=== PATIENT | female | born 1960 | race Caucasian/White ===

== ENCOUNTER 2019-12-11 12:28 | Emergency (ER) | payer OTHER ==
[~2019-12-11] VITALS: Ht 170.2 cm; Wt 88.5 kg
[2019-12-11] MEDS ORDERED: KETOROLAC TROMETH 60MG/2ML VIAL ONE (16:12)
[2019-12-11] MEDS ORDERED: KETOROLAC TROMETH 60MG/2ML VIAL IM ONE (16:15)
[2019-12-11 16:19] VITALS: BP 129/62
== END 2019-12-11 16:20 | disposition home or self-care (01) ==
LOC: ER 12:28
DX: M17.11 Unilateral primary osteoarthritis, right knee (principal); M25.461 Effusion, right knee
CPT/HCPCS: 73562; 96372; 99283; J1885

== ENCOUNTER 2020-08-08 23:58 | Emergency (ER) | payer OTHER ==
[~2020-08-08] VITALS: Ht 170.2 cm; Wt 90.7 kg
[2020-08-08 23:59] VITALS: BP 164/65
== END 2020-08-09 01:54 | disposition left against medical advice (07) ==
LOC: ER 23:58
DX: R21 Rash and other nonspecific skin eruption (principal); M79.602 Pain in left arm; M79.601 Pain in right arm; Z53.21 Procedure and treatment not carried out due to patient leaving prior to being seen by health care provider

== ENCOUNTER 2020-08-11 16:12 | Emergency (ER) | payer OTHER ==
[~2020-08-11] VITALS: Ht 170.2 cm; Wt 90.7 kg
[2020-08-11 16:15] VITALS: BP 144/87
[2020-08-11] MEDS ORDERED: methylPREDNISolone SOD SUCC 125 MG/2 ML VL IM ONE (17:00)
== END 2020-08-11 17:42 | disposition home or self-care (01) ==
LOC: ER 16:13
DX: L30.9 Dermatitis, unspecified (principal); F17.210 Nicotine dependence, cigarettes, uncomplicated
CPT/HCPCS: 96372; 99283; J2930

== ENCOUNTER 2020-09-07 22:40 | Emergency (ER) | payer OTHER ==
[~2020-09-07] VITALS: Ht 170.2 cm; Wt 90.7 kg
[2020-09-08 02:12] VITALS: BP 155/89
== END 2020-09-08 02:42 | disposition left against medical advice (07) ==
LOC: ER 22:40
DX: R21 Rash and other nonspecific skin eruption (principal); L29.9 Pruritus, unspecified; F17.210 Nicotine dependence, cigarettes, uncomplicated

== ENCOUNTER 2020-10-31 17:13 | Emergency (ER) | payer MEDICAID, OTHER ==
[~2020-10-31] VITALS: Ht 170.2 cm; Wt 90.7 kg
[2020-10-31 20:09] VITALS: BP 103/57
[2020-11-01] MEDS ORDERED: CLINDAMYCIN 900MG IV 50 ML IV ONE (00:30)
[2020-11-01] MEDS ORDERED: SODIUM CHLORIDE 0.9% 1,000 ML IV ONE (01:45)
== END 2020-11-01 05:25 | disposition home or self-care (01) ==
LOC: ER 17:13
DX: L03.115 Cellulitis of right lower limb (principal); L03.116 Cellulitis of left lower limb; I87.2 Venous insufficiency (chronic) (peripheral); F17.210 Nicotine dependence, cigarettes, uncomplicated
CPT/HCPCS: 96365; 99284; J3490; J7030

== ENCOUNTER 2022-08-17 03:32 | Emergency (ER) | payer MEDICAID ==
[~2022-08-17] VITALS: Ht 170.2 cm; Wt 84.5 kg
[2022-08-17] MEDS ORDERED: methylPREDNISolone SOD SUCC 125 MG/2 ML VL IM ONE (04:15)
[2022-08-17] MEDS ORDERED: diphenhdrAMINE HCL 50 MG/1 ML VL IM ONE (04:15)
[2022-08-17] MEDS ORDERED: CEPH-510 PO (04:56)
[2022-08-17] MEDS ORDERED: PRED20TA2 PO (04:56)
[2022-08-17] MEDS ORDERED: DIPH25CA66 PO (04:56)
[2022-08-17 05:56] VITALS: BP 132/68
== END 2022-08-17 05:56 | disposition home or self-care (01) ==
LOC: ER 03:32
DX: T78.40XA Allergy, unspecified, initial encounter (principal); F17.210 Nicotine dependence, cigarettes, uncomplicated; Z79.899 Other long term (current) drug therapy; Y92.89 Other specified places as the place of occurrence of the external cause
CPT/HCPCS: 96372; 99284; J1200; J2930

== ENCOUNTER 2024-01-16 21:47 | Emergency (ER) | payer MEDICAID ==
[~2024-01-16] VITALS: Ht 170.2 cm; Wt 84.0 kg
[~2024-01-16 21:47] MED LIST: CEPH-510 PO; DIPH25CA66 PO; PRED20TA2 PO
[2024-01-16] MEDS: cloNIDine HCL 0.1 MG TAB PO ONE (22:31)
[2024-01-16 23:31] VITALS: BP 135/81; PULSE 82; RESP 16; TEMP 98.7; O2SAT 93
[2024-01-16] MEDS ORDERED: ERY05OO OP (23:58)
[2024-01-17] MEDS: KETOROLAC TROMETH 60MG/2ML VIAL IM ONE (00:06)
== END 2024-01-17 00:35 | disposition home or self-care (01) ==
LOC: ER 21:47
DX: H16.133 Photokeratitis, bilateral (principal); F17.210 Nicotine dependence, cigarettes, uncomplicated; Z79.899 Other long term (current) drug therapy; W89.8XXA Exposure to other man-made visible and ultraviolet light, initial encounter; Y93.89 Activity, other specified; Y92.89 Other specified places as the place of occurrence of the external cause; Y99.8 Other external cause status
CPT/HCPCS: 96372; 99283; J1885

== ENCOUNTER 2024-04-30 16:09 | Emergency (ER) | payer MEDICAID ==
[~2024-04-30] VITALS: Ht 170.2 cm; Wt 88.8 kg
[~2024-04-30 16:09] MED LIST changes: +ERY05OO OP
[2024-04-30 16:19] VITALS: BP 152/76; PULSE 102; RESP 16; O2SAT 97
--- NOTE | 2024-04-30 17:41 | DVH ---
CHEST RADIOGRAPH Indication: sob Technique: Single frontal view of the chest was obtained Comparison: None FINDINGS: Lines and Tubes: None Lungs: Possible soft tissue mass in the aortic pulmonary window. Recommend CT of the chest with IV co ntrast. Pleura: No effusion. No pneumothorax. Cardiomediastinal contours: Unremarkable Bones: No acute osseous abnormality. IMPRESSION: 1. Questionable mass in the aortic or pulmonary window recommend CT scan of the chest with IV contras t.. HS:Y
[2024-04-30 17:47] LABS: Albumin 4.3 g/dL (3.2-4.8); Anion Gap 6 (5-15); Aspartate Aminotransferase 28 U/L (13-40); Blood Urea Nitrogen 16 mg/dL (9-23); Calcium 9.8 mg/dL (8.7-10.4); Carbon Dioxide 27 mmol/L (20-31); Glucose 100 mg/dL (74-106); Potassium 3.9 mmol/L (3.5-5.1); Sodium 141 mmol/L (136-145)
[2024-04-30 17:48] LABS: Bilirubin, Total 0.9 mg/dL (0.2-1.0); Total Protein 7.5 g/dL (5.7-8.2)
[2024-04-30 18:02] LABS: Alanine Aminotransferase 49 U/L (7-40); Alkaline Phosphatase 135 U/L (46-116); Chloride 108 mmol/L (98-107)
[2024-04-30 18:06] LABS: Basophils # (auto) 0.1 10 ^3/uL (0-0.2); Basophils % (auto) 1.3 % (0.0-2.0); Eosinophils # (auto) 0.1 10 ^3/uL (0-0.8); Eosinophils % (auto) 1.4 % (0.0-7.0); Hematocrit 48.8 % (36.0-46.0); Hemoglobin 16.4 g/dL (12.2-16.2); Lymphocytes # (auto) 1.6 10 ^3/uL (0.4-5.4); Lymphocytes % (auto) 19.6 % (10.0-50.0); Mean Corpuscular Hemoglobin 31.4 pg (28.0-32.0); Mean Corpuscular Hgb Conc. 33.5 g/dL (32.0-36.0); Mean Corpuscular Volume 93.5 fL (80.0-100.0); Monocytes # (auto) 0.5 10 ^3/uL (0-1.3); Monocytes % (auto) 6.6 % (0.0-12.0); Neutrophils # (auto) 5.8 10 ^3/uL (1.6-8.6); Neutrophils % (auto) 71.1 % (37.0-80.0); Nucleated Red Blood Cells % 0.3 %; Platelet Count (auto) 227 10^3/uL (140-450); Red Blood Cells 5.22 10^6/uL (4.0-5.20); Red Cell Distribution Width 13.5 % (11.8-14.3); White Blood Cell 8.2 10^3/uL (4.4-10.8)
--- NOTE | 2024-04-30 19:37 | ED.PDOC ---
History of Present Illness HPI Comments 64 y/o F presents with c/o left-lower leg swelling and draining wound and shortness of breath, intermittently, for 1x week, today. Patient endorses on unprovoked onset of symptoms. She comments on having prior Hx of leg swelling in the past, intermittently, for months in addition to wound being on the left l ateral side of her lower leg. Patient reports awaiting current vascula specialist consultation following seeing her PCP in regards to symptoms, recently. She denies having any fever, chills, chest pain, palpitations, cough, wheezing, or other associated symptoms or modifiers at this time. Chief Complaint: Wound Check Time Seen by MD: 16:15 Primary Care Provider: ADRIANOIES Reviewed Notes: Nurses Notes, Medications, Allergies Allergies: Coded Allergies: NO KNOWN ALLERGIES (Unverified , 12/11/19) Home Meds Active Scripts Erythromycin (Erythromycin) 5 Mg/Gm Oin, 1 MG OP QID for 7 Days, #3.5 GRAMS Apply 1 cm ribbon to each inside lower lid up to 4 times daily x7 days Prov:SUDEEP NATHAN 01/16/24 Diphenhydramine Hcl (Benadryl Allergy) 25 Mg Cap, 2 CAP PO Q6HPRN, #30 CAP 0 Refills Prov:ALEKSEY FARIAS 08/17/22 Prednisone (Prednisone) 20 Mg Tab, 20 MG PO BID for 5 Days, #10 TAB 0 Refills Prov:ALEKSEY FARIAS 08/17/22 Cephalexin ( Keflex 500) 500 Mg Cap, 1 CAP PO BID for 7 Days, #14 CAP 0 Refills Prov:ALEKSEY FARIAS 08/17/22 Information Source: Patient Mode of Arrival: Ambulatory Severity: Moderate Timing: Weeks Duration: Intermittent Prehospital treatment: None Past Medical History PAST MEDICAL HISTORY: Denies Surgical History: Denies all surgeries APPLICATION SECURITY ARCHITECT History: Denies all APPLICATION SECURITY ARCHITECT Hx Family History Family History: Unknown Social History Smoker: Cigarettes, Less Than 1 Pack/Day Alcohol: Occasionally Drugs: Denies Drug Use Lives In: Home Respiratory: reports: shortness of breath Musculoskeletal: reports: others (left lower extremity swelling ) Integumetry: reports: wounds (left lateral side to left lower leg) All Other Systems: Reviewed and Negative (negative unless otherwise stated above or in HPI) Physical Exam General Appearance: No Apparent Distress, Obese HEENT: Normal ENT Inspection, Pharynx Normal, TMs Normal Neck: Full Range of Motion, Non-Tender, Normal, Normal Inspection Respiratory: Chest Non-Tender, Lungs Clear, No Accessory Muscle Use, No Respiratory Distress, Normal Breath Sounds Cardiovascular: No Edema, No JVD, No Murmur, No Gallop, Normal Peripheral Pulses, Regular Rate/Rhythm Breast Exam: Deferred Gastrointestinal: No Organomegaly, Non Tender, No Pulsatile Mass, Normal Bowel Sounds, Soft Genitalia: Deferred Pelvic: Deferred Rectal: Deferred Extremities: Leg edema (pitting bilateral LLE edema), No calf tenderness, Normal capillary refill, No pedal edema, Other Musculoskeletal : Apperance: Normal Neurologic: Alert, environmental inspector II-XII nml as Tested, No Motor Deficits, Normal Affect, Normal Mood, No Sensory Deficits Cerebellar Function: Normal Reflexes: Normal Skin: Dry, Normal Color, Warm, Wounds (weeping wound with clear fluid drainage to left lower extremity lateral side, with erythematous and warmth to surrounding tissue) Lymphatic: No Adenopathy Was a procedure done? Was a procedure done?: No Differential Dx Considerations may include: cellulitis, dermatitis, DVT X-Ray, Labs, Meds, VS Vital Signs Date Time Temp Pulse Resp B/P (MAP) Pulse Ox O2 Delivery O2 Flow Rate FiO2 04/30/24 16:19 98.4 102 16 152/76 (101) 97 Lab Test 04/30/24 16:57 Range/Units White Blood Count 8.2 4.4-10.8 10^3/uL Red Blood Count 5.22 H 4.0-5.20 10^6/uL Hemoglobin 16.4 H 12.2-16.2 g/dL Hematocrit 48.8 H 36.0-46.0 % Mean Corpuscular Volume 93.5 80.0-100.0 fL Mean Corpuscular Hemoglobin 31.4 28.0-32.0 pg Mean Corpuscular Hemoglobin Concent 33.5 32.0-36.0 g/dL Red Cell Distribution Width 13.5 11.8-14.3 % Platelet Count 227 140-450 10^3/uL Mean Platelet Volume 8.2 6.9-10.8 fL Neutrophils (%) (Auto) 71.1 37.0-80.0 % Lymphocytes (%) (Auto) 19.6 10.0-50.0 % Monocytes (%) (Auto) 6.6 0.0-12.0 % Eosinophils (%) (Auto) 1.4 0.0-7.0 % Basophils (%) (Auto) 1.3 0.0-2.0 % Neutrophils # (Auto) 5.8 1.6-8.6 10 ^3/uL Lymphocytes # (Auto) 1.6 0.4-5.4 10 ^3/uL Monocytes # (Auto) 0.5 0-1.3 10 ^3/uL Eosinophils # (Auto) 0.1 0-0.8 10 ^3/uL Basophils # (Auto) 0.1 0-0.2 10 ^3/uL Nucleated Red Blood Cells 0.3 % Sodium Level 141 136-145 mmol/L Potassium Level 3.9 3.5-5.1 mmol/L Chloride Level 108 H 98-107 mmol/L Carbon Dioxide Level 27 20-31 mmol/L Anion Gap 6 5-15 Blood Urea Nitrogen 16 9-23 mg/dL Creatinine 1.14 H 0.550-1.02 mg/dL Glomerular Filtration Rate Calc 54 >90 mL/min BUN/Creatinine Ratio 14.0 10.0-20.0 Serum Glucose 100 74-106 mg/dL Calcium Level 9.8 8.7-10.4 mg/dL Total Bilirubin 0.9 0.2-1.0 mg/dL Aspartate Amino Transferase (AST) 28 13-40 U/L Alanine Aminotransferase (ALT) 49 H 7-40 U/L Alkaline Phosphatase 135 H 46-116 U/L B-Type Natriuretic Peptide 274.67 0-100 pg/mL Total Protein 7.5 5.7-8.2 g/dL Albumin 4.3 3.2-4.8 g/dL [place] [id number] Ph: [phone] DIAGNOSTIC IMAGING Diagnostic Imaging Report : [id number] Signed PATIENT: NEERAJ BUNN ACCT: [id number] UNIT: [id number] : 1960 LOC: ER ROOM / BED: / AGE / SEX: 64 / F ADM STATUS: REG ER SERVICE [id number] ORDERING PHYSICIAN: JOHNNIE BUTTERFIELD PROCEDURE(s): CXR1 - CHEST XRAY 1 VIEW REASON: sob ORDER NUMBER(s): [id number], ACCESSION NUMBER(s): [id number] CHEST RADIOGRAPH Indication: sob Technique: Single frontal view of the chest was obtained Comparison: None FINDINGS: Lines and Tubes: None Lungs: Possible soft tissue mass in the aortic pulmonary window. Recommend CT of the chest with IV contrast. Pleura: No effusion. No pneumothorax. Cardiomediastinal contours: Unremarkable Bones: No acute osseous abnormality. IMPRESSION: 1. Questionable mass in the aortic or pulmonary window recommend CT scan of the chest with IV contrast.. HS:Y ATED BY: VIKI ALICEA Jr., DO DICTATED DATE/TIME: 04/30/241737 SIGNED BY: VIKI ALICEA Jr., DO SIGNED DATE/TIME: 04/30/241737 CC: X-Ray, Labs, Meds, VS Comment Chest x-ray showed possible mass and cardiac silhouette, recommended CTA. CTA ordered. Patient no answer for CT. Patient returned to emergency department lobby 2 hours later saying that she left and came back. Thin patient states she was leaving AMA. Patient witnessed leaving emergency room Time of 1ST Reevaluation: 16:45 Reevaluation 1ST: Unchanged Patient Education/Counseling: Diagnosis, Treatment Family Education/Counseling: No Family Present Departure 1 Departure Time of Disposition: 22:49 Impression: Primary Impression: Cellulitis of left lower leg Additional Impressions: Cellulitis of right lower leg Venous insufficiency of both lower extremities Disposition: 07 LEFT AWOL/ELOPED Condition: Stable Discharged With: Self Critical Care Note Critical Care Time?: No Stability Stability form required: No Heart Score Heart Score: Heart Score Response (Comments) Value History N/A 0 EKG N/A 0 Age N/A 0 Risk Factors N/A 0 Troponin N/A 0 Total 0 I personally scribed for JOHNNIE BUTTERFIELD ([email or web address]) on 04/30/24 at 19:37. Electronically submitted by Mayo Medina ([email or web address]). JOHNNIE BUTTERFIELD Apr 30, 2024 19:37
== END 2024-04-30 22:39 | disposition left against medical advice (07) ==
LOC: ER 16:09
DX: L03.115 Cellulitis of right lower limb (principal); L03.116 Cellulitis of left lower limb; I87.2 Venous insufficiency (chronic) (peripheral); F17.210 Nicotine dependence, cigarettes, uncomplicated; Z79.52 Long term (current) use of systemic steroids; Z79.899 Other long term (current) drug therapy
CPT/HCPCS: 36415; 71045; 80053; 83880; 85025